=== PATIENT | female | born 1975 | race Caucasian/White ===

== ENCOUNTER 2017-10-11 07:04 | Day surgery (SDC) | payer BC ==
[2017-10-11 07:36] VITALS: BMI 44.5
[2017-10-11] MEDS ORDERED: PROPOFOL 20 ML ONE ×2 (07:52)
[2017-10-11] MEDS ORDERED: LIDOCAINE HCL/PF 2% SDV 5ML VIAL ONE (07:53)
[2017-10-11 09:37] VITALS: BP 137/68; PULSE 74; TEMP 98.4
--- NOTE | 2017-12-06 20:14 | SPEC ---
DATE OF OPERATION: 10/11/2017 PREOPERATIVE DIAGNOSIS: To evaluate anatomy prior to bariatric surgery. POSTOPERATIVE DIAGNOSIS: Gastric antral polyp. PROCEDURE: Upper endoscopy/EGD. ESTIMATED BLOOD LOSS: Zero mL. DRAINS: None. ANESTHESIA: MAC. REASON FOR PROCEDURE: The patient was undergoing evaluation for a vertical sleeve gastrectomy. In order to further evaluate anatomy, an upper endoscopy was performed. Risks and benefits of the procedure were explained. These included bleeding, infection, injury to surrounding structures including injury or perforation to the esophagus, stomach, duodenum, abscess formation, injury to the oral cavity, TX, DVT, PE, as some of the complications. She understood and signed informed consent. DESCRIPTION OF PROCEDURE: The patient was placed in the left lateral decubitus position. The endoscope was inserted into the patient's mouth after a timeout was performed and inserted beyond the oral cavity. The esophagus, GE junction, stomach up to the level of the pylorus was inspected. There was noted at the distal aspect of the gastric antrum to be a hypertrophic polyp. No biopsies at the time were taken, and no other polyps were noted. No other gross anatomical abnormalities were noted. The stomach was suctioned and the endoscope was fully removed. She was referred to her ruffling hemmer automatic for further evaluation and a possible biopsy of the polyp prior to endoscopy. MAYELIN ANTONIO M.D. CHEN/[id number]
== END 2017-10-11 09:37 | disposition home or self-care (01) ==
LOC: JASU-ENDO 07:04
PROVIDERS: ATTEND Surgery
PROC: 0DJ08ZZ Inspection of Upper Intestinal Tract, Via Natural or Artificial Opening Endoscopic (ICD-10-PCS; principal; 2017-10-11 08:00)
DX: Z01.818 Encounter for other preprocedural examination (principal); E66.01 Morbid (severe) obesity due to excess calories; E06.3 Autoimmune thyroiditis
CPT/HCPCS: 84703